=== PATIENT | female | born 1965 | race Caucasian/White ===

== ENCOUNTER → 2021-01-27 | Outpatient (CLI) | payer OTHER ==
--- NOTE | 2021-01-27 09:48 | REP ---
INDICATION: EARLY SATIETY. COMPARISON: None. TECHNIQUE/RADIOTRACER AND DOSE: Following the intravenous administration of 1.05 mCi technetium 99 M sulfur colloid in 2 scrambled eggs and 6 oz of water, multiple images of the upper abdomen are performed in the anterior and posterior projections for 90 minutes. FINDINGS: The gastric activity is measured. At the end of 90 minutes 54% of the ingested activity has emptied from the stomach. The T1/2 is 87 minutes which is normal. IMPRESSION: Normal gastric emptying time. <Electronically signed by Lawrence Velasquez > 01/27/21 0914
== END ==
LOC: M RAD 07:37
PROVIDERS: ATTEND Nurse Practitioner Family
DX: R68.81 Early satiety (principal)
CPT/HCPCS: 78264; A9541

== ENCOUNTER → 2022-08-17 | Outpatient (CLI) | payer OTHER | LOC: M RAD 09:41 | PROVIDERS: ATTEND Internal Medicine Nephrology | DX: E21.0 Primary hyperparathyroidism (principal) | CPT/HCPCS: 78070; 78803; A9500 ==